=== PATIENT | male | born 1970 | race Caucasian/White ===

== ENCOUNTER 2017-02-19 09:35 | Day surgery (SDC) | payer OTHER ==
[2017-02-19] VITALS (10 sets, daily range): BP systolic 104–129; BP diastolic 62–79; PULSE 50–72; TEMP 97.9–98.7
[~2017-02-19] VITALS: Ht 172.7 cm; Wt 77.8 kg
[2017-02-19] MEDS ORDERED: ZOCOR 40MG40 MG PO (10:14)
[2017-02-20 05:32] VITALS: BP 118/56; PULSE 62; TEMP 98.2
[2017-02-20 09:10] VITALS: BP 137/81; PULSE 71; TEMP 97.6
[2017-02-20] MEDS ORDERED: PYRIDIUM 100MG100 MG PO (09:45)
[2017-02-20] MEDS ORDERED: BACTRIM DS 8001 TAB PO (09:45)
[2017-02-20] MEDS ORDERED: NORCO 325 MG-51 TAB PO (09:45)
[2017-02-20] MEDS ORDERED: SENOKOT S 50 MG1 TAB PO (09:46)
== END 2017-02-20 09:45 | disposition home or self-care (01) ==
LOC: SDCO 09:35 → SURG 16:23 → SDCO 02-20 09:45
DX: R31.0 Gross hematuria (principal); G47.33 Obstructive sleep apnea (adult) (pediatric); Z82.49 Family history of ischemic heart disease and other diseases of the circulatory system; Z80.1 Family history of malignant neoplasm of trachea, bronchus and lung
CPT/HCPCS: OP; C1769; J0690; J1100; J1885; J2405; J2704; J3010; J7120; Q9967